=== PATIENT | male | born 1980 | race American Indian/Alaskan Native ===

== ENCOUNTER 2017-10-03 22:12 | Emergency (ER) | payer OTHER ==
[2017-10-03 22:20] VITALS: BP 117/62
--- NOTE | 2017-10-03 23:32 | Emergency Department Report ---
ED Male HPI - General Chief complaint: Urogenital-Male Stated complaint: RIGHT EYE PAIN,HURT IN URINATING Time Seen by Provider: 10/03/17 23:04 Source: patient Mode of arrival: Ambulatory Limitations: No Limitations - History of Present Illness Initial comments: There is a 37-year-old -[place] who presents for dysuria urgency and frequency 1 week patient denies fevers chills no nausea vomiting denies penile discharge patient is sexually active with partner who is also seeking treatment today patient has secondary complaint of pinkeye right 4 days symptoms include yellow discharge and itching there is no photophobia no blurred vision no visual changes MD Complaint: dysuria Onset/Timin -: week(s) Location: penis Radiation: none Severity: moderate Severity scale (0 -10): 3 Quality: burning Consistency: intermittent Improves with: none Worsens with: urination denies other symptoms - Related Data Sexually active: Yes Previous Rx's Medication Instructions Recorded Last Taken Type Ciprofloxacin 0.3% (Nf) 2 drops OP Q3H #5 ml 10/04/17 Unknown Rx [Ciprofloxacin OPTH] Doxycycline [Vibramycin CAP] 100 mg PO BID #20 capsule 10/04/17 Unknown Rx Allergies Allergy/AdvReac Type Severity Reaction Status Date / Time Penicillins Allergy Unknown Verified 10/03/17 22:17 ED Review of Systems ROS: Stated complaint: RIGHT EYE PAIN,HURT IN URINATING Other details as noted in HPI Constitutional: denies: chills, fever Eyes: denies: eye pain, eye discharge, vision change ENT: denies: ear pain, throat pain Respiratory: denies: cough, shortness of breath, wheezing Cardiovascular: denies: chest pain, palpitations Endocrine: no symptoms reported Gastrointestinal: denies: abdominal pain, nausea, diarrhea Genitourinary: urgency, dysuria, frequency. denies: hematuria, discharge, testicular pain, testicular mass Musculoskeletal: denies: back pain, joint swelling, arthralgia Skin: denies: rash, lesions Neurological: denies: headache, weakness, paresthesias Psychiatric: denies: anxiety, depression Hematological/Lymphatic: denies: easy bleeding, easy bruising ED Past Medical Hx - Past Medical History Previous Medical History?: No - Medications Home Medications: Home Medications Medication Instructions Recorded Confirmed Last Taken Type Ciprofloxacin 0.3% (Nf) 2 drops OP Q3H #5 ml 10/04/17 Unknown Rx [Ciprofloxacin OPTH] Doxycycline [Vibramycin CAP] 100 mg PO BID #20 capsule 10/04/17 Unknown Rx ED Physical Exam - General Limitations: No Limitations General appearance: alert, in no apparent distress - Head Head exam: Present: atraumatic, normocephalic - Eye Eye exam: Present: normal appearance, PERRL, EOMI, conjunctival injection. Absent: scleral icterus, nystagmus, periorbital swelling, periorbital tenderness Pupils: Present: normal accommodation - Expanded Eye Exam Expanded Pupils: Regular, Round: Bilateral, Reactive: Bilateral Sclera/Conjunctival: Injection: Left, Exudate: Left Anterior chamber: Normal Inspection: Bilateral Posterior chamber: Deferred: Bilateral Visual acuity (R) = 20/: 20 Visual acuity (L) = 20/: 20 With correction: No - ENT ENT exam: Present: mucous membranes moist - Neck Neck exam: Present: normal inspection - Respiratory Respiratory exam: Present: normal lung sounds bilaterally. Absent: respiratory distress - Cardiovascular Cardiovascular Exam: Present: regular rate, normal rhythm. Absent: systolic murmur, diastolic murmur, rubs, gallop - GI/Abdominal GI/Abdominal exam: Present: soft, normal bowel sounds. Absent: distended, tenderness, guarding, rebound, rigid, organomegaly, mass, bruit, pulsatile mass , hernia - Rectal Rectal exam: Present: deferred - exam: Present: other ( exam deferred per patient ) - Extremities Exam Extremities exam: Present: normal inspection, full ROM. Absent: tenderness - Back Exam Back exam: Present: normal inspection, full ROM. Absent: tenderness, CVA tenderness (R), CVA tenderness (L), muscle spasm, paraspinal tenderness, vertebral tenderness, rash noted - Neurological Exam Neurological exam: Present: alert, oriented X3, normal gait, reflexes normal - Psychiatric Psychiatric exam: Present: normal affect, normal mood - Skin Skin exam: Present: warm, dry, intact, normal color. Absent: rash ED Course Vital Signs 10/03/17 22:17 Temperature 98.2 F Pulse Rate 68 Respiratory 18 Rate Blood Pressure 117/62 [Left] O2 Sat by Pulse 98 Oximetry ED Medical Decision Making - Lab Data Laboratory Tests 10/03/17 23:15 Urine Color Yellow Urine Turbidity Clear Urine pH 5.0 Ur Specific [place] 1.028 Urine Protein <15 mg/dl Urine Glucose (UA) Neg Urine Ketones Tr Urine Blood Neg Urine Nitrite Neg Urine Bilirubin Neg Urine Urobilinogen 2.0 Ur Leukocyte Esterase Tr Urine WBC (Auto) 18.0 H Urine RBC (Auto) 7.0 Urine Mucus Few - Medical Decision Making There is a 37-year-old -[place] who presents for dysuria urgency and frequency 1 week patient denies fevers chills no nausea vomiting denies penile discharge patient is sexually active with partner who is also seeking treatment today patient has secondary complaint of pinkeye right 4 days symptoms include yellow discharge and itching there is no photophobia no blurred vision no visual changes ua: luek, wbc, plan tx of sti, ch/chl cultures pending rocephin , azithromycin, dc to home in stable condition with rx for doxycycline , cipro 3% opth and follow up with health department and opthalmology pt verbalized agreement and understanding of same. Critical care attestation.: If time is entered above; I have spent that time in minutes in the direct care of this critically ill patient, excluding procedure time. ED Disposition Clinical Impression: STI (sexually transmitted infection) Conjunctivitis Qualifiers: Conjunctivitis type: acute Acute conjunctivitis type: bacterial Laterality: left Qualified Code(s): H10.32 - Unspecified acute conjunctivitis, left eye Disposition: DC-01 TO HOME OR SELFCARE Is pt being admited?: No Does the pt Need Aspirin: No Condition: Good Instructions: Sexually Transmitted Diseases (ED), Conjunctivitis (ED) Prescriptions: Ciprofloxacin 0.3% (Nf) [Ciprofloxacin OPTH] 2 drops OP Q3H #5 ml Doxycycline [Vibramycin CAP] 100 mg PO BID #20 capsule Referrals: FLORENCE MADRIGAL MD [Staff Physician] - 3-5 Days [facility] [Outside] - 3-5 Days Forms: Work/School Release Form(ED) Time of Disposition: 00:08
[2017-10-03 23:40] LABS: Bilirubin,Urine NEG (Negative); Blood,Urine NEG (Negative); Color,Urine Yellow (Yellow); Mucus,Urine FEW /HPF; Protein,Urine <15 mg/dL mg/dL (Negative)
[2017-10-03] MEDS ORDERED: ROCEPHIN IM ONE (23:59)
[2017-10-03] MEDS ORDERED: ZITHROMAX PO ONE (23:59)
[2017-10-03] MEDS ORDERED: XYLOCAINE 1% MPF 5 mL INFILTRATI ONE (23:59)
== END 2017-10-04 00:50 | disposition home or self-care (01) ==
LOC: ED 22:12
DX: H10.32 Unspecified acute conjunctivitis, left eye (principal); B33.8 Other specified viral diseases
CPT/HCPCS: 81001; 87591; 96372; 99283; J0696